=== PATIENT | female | born 1990 | race Caucasian/White ===

== ENCOUNTER 2019-10-03 16:45 | Emergency (ER) | payer OTHER ==
[~2019-10-03] VITALS: Ht 149.9 cm; Wt 76.0 kg
[~2019-10-03 16:45] MED LIST: HYDR-3240 PO; IBUP-1222 PO; IBUP-1223 PO
[2019-10-03 17:37] LABS: CULTURE INDICATED? YES; MICROSCOPIC INDICATED
--- NOTE | 2019-10-03 17:48 | NUR ---
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
--- NOTE | 2019-10-03 17:49 | NUR ---
THIS IS A 29 YO F W C/O OF ABD PAIN 10/10 AND RECENT DIARRHEA X4 DAYS. PAIN IS WORSE WITH EATING. DENIES NAUSEA AND VOMITING. DENIES RECENT ILLNESSES. PATIENTS RESPIRATIONS ARE EVEN AND UNLABORED. PATIENT IS IN NO ACUTE DISTRESS.
[2019-10-03] MEDS ORDERED: SERT25TA3 PO (17:55)
[2019-10-03] MEDS ORDERED: MORPHINE SULFATE 4 MG/ML, 1ML ONE (18:07)
[2019-10-03] MEDS ORDERED: ONDANSETRON 2MG/ML, 2ML ONE (18:07)
[2019-10-03] MEDS ORDERED: MORPHINE SULFATE 4 MG/ML, 1ML IVPush PRN (18:30)
[2019-10-03] MEDS ORDERED: ONDANSETRON 2MG/ML, 2ML IVPush ONE (18:30)
[2019-10-03 18:35] LABS: BASOPHILS # (AUTO) 0.04 x10^3/uL (0-0.1); BASOPHILS % (AUTO) 1 % (0-1); EOSINOPHILS # (AUTO) 0.25 x10^3/uL (0-0.4); EOSINOPHILS % (AUTO) 3 % (1-7); LYMPHOCYTES # (AUTO) 2.06 x10^3/uL (1-3.4); LYMPHOCYTES % (AUTO) 25 % (22-44); MD NO; MEAN CORPUSCULAR HGB CONC 33.1 g/dL (32.4-35.8); MEAN CORPUSCULAR VOLUME 87.8 fL (80-100); MONOCYTES # (AUTO) 0.42 x10^3/uL (0.2-0.8); MONOCYTES % (AUTO) 5 % (2-9); NEUTROPHILS # (AUTO) 5.47 x10^3/uL (1.8-6.8); NEUTROPHILS % (AUTO) 67 % (42-75); PLATELET COUNT 256 x10^3/uL (130-400); RED BLOOD COUNT 4.79 x10^6/uL (3.82-5.3); RED CELL DISTRIBUTION WIDTH 13.9 % (9.6-15.2)
[2019-10-03 18:42] LABS: ANION GAP 6 mmol/L (5-15); CALCIUM 9.1 mg/dL (8.5-10.1); CHLORIDE 106 mmol/L (98-107); CREATININE 0.95 mg/dL (0.55-1.02)
[2019-10-03 18:43] LABS: ALANINE AMINOTRANSFERASE 49 U/L (12-78); ALBUMIN 3.9 g/dL (3.4-5.0)
[2019-10-03 18:47] LABS: ALKALINE PHOSPHATASE 103 U/L (45-117); BILIRUBIN,TOTAL 0.5 mg/dL (0.2-1.0)
--- NOTE | 2019-10-03 19:00 | NUR ---
report received from teja/cody marsh.
--- NOTE | 2019-10-03 19:02 | NUR ---
pt in ct now.
--- NOTE | 2019-10-03 19:14 | NUR ---
PT BACK TO ROOM FROM CT AT THIS TIME.
[2019-10-03 19:33] VITALS: BP 101/61
[2019-10-04] MEDS ORDERED: OMNIPAQUE 350 MG/ML, 100ML BOTTLE ONE (00:02)
== END 2019-10-03 20:34 | disposition home or self-care (01) ==
LOC: ED 18:19
DX: R10.33 Periumbilical pain (principal); K66.8 Other specified disorders of peritoneum
CPT/HCPCS: 36415; 74177; 80053; 81001; 83690; 84703; 85025; 87086; 96374; 96375; 99284; J2270; J2405; Q9967

== ENCOUNTER 2019-11-01 07:15 | Emergency (ER) | payer OTHER ==
[~2019-11-01] VITALS: Ht 149.9 cm; Wt 76.5 kg
[~2019-11-01 07:15] MED LIST changes: +SERT25TA3 PO
[2019-11-01 07:24] VITALS: BP 112/67
[2019-11-01] MEDS ORDERED: DEXAMETHASONE 4 MG TABLET ONE (07:52)
[2019-11-01] MEDS ORDERED: DEXAMETHASONE 4 MG TABLET PO ONE (08:00)
--- NOTE | 2019-11-01 08:00 | NUR ---
PT TO IMAGING
[2019-11-01 08:40] LABS: RAPID INFLUENZA A Negative (Negative); RAPID INFLUENZA B Negative (Negative)
--- NOTE | 2019-11-01 09:32 | NUR ---
DISCHARGE INSTRUCTIONS REVIEWED
== END 2019-11-01 09:34 | disposition home or self-care (01) ==
LOC: ED 08:41
DX: B34.9 Viral infection, unspecified (principal)
CPT/HCPCS: 71046; 87081; 87400; 87880; 99284

== ENCOUNTER 2020-08-29 14:16 | Emergency (ER) | payer OTHER ==
[~2020-08-29] VITALS: Ht 149.9 cm; Wt 75.8 kg
[2020-08-29] MEDS ORDERED: ALBUTEROL/IPRATROPIUM 2.5MG/0.5MG, 3 ML NPPB SCH (15:30)
--- NOTE | 2020-08-29 16:30 | NUR ---
BREATHING TREATMENT ADMINISTERED
[2020-08-29 16:39] VITALS: BP 126/87
--- NOTE | 2020-08-29 17:27 | NUR ---
DISCHARGE INSTRUCTIONS REVIEWED
== END 2020-08-29 17:37 | disposition home or self-care (01) ==
LOC: ED 15:53
DX: U07.1 COVID-19 (principal); J15.9 Unspecified bacterial pneumonia; J45.901 Unspecified asthma with (acute) exacerbation
CPT/HCPCS: 71045; 87635; 94640; 99284

== ENCOUNTER 2020-12-19 08:01 | Emergency (ER) | payer BC, OTHER ==
[~2020-12-19] VITALS: Ht 149.9 cm; Wt 65.0 kg
[~2020-12-19 08:01] MED LIST changes: +HYDR-1067 PO; -HYDR-3240 PO; +SERT-331 PO; -SERT25TA3 PO
--- NOTE | 2020-12-19 08:51 | NUR ---
THIS IS A 30 YO F W/ C/O COUGH AND NASAL CONGESTION. PT AWAKE AND ALERT, CONVERSING W/O DIFFICULTY. RESP EVEN AND UNLABORED, NADN.
[2020-12-19 09:33] LABS: RAPID INFLUENZA A Negative (Negative); RAPID INFLUENZA B Negative (Negative)
[2020-12-19 09:56] VITALS: BP 114/69
--- NOTE | 2020-12-19 09:57 | NUR ---
patient back from x-ray resting on [facility] with children. TANMAY. awaiting results.
--- NOTE | 2020-12-19 10:35 | NUR ---
Patient given discharge instructions and they have confirmed that they understand the instructions. Patient ambulatory with steady gait.
== END 2020-12-19 10:36 | disposition home or self-care (01) ==
LOC: ED 08:48
DX: R50.9 Fever, unspecified (principal); Z20.822 Contact with and (suspected) exposure to COVID-19; J45.909 Unspecified asthma, uncomplicated
CPT/HCPCS: 71046; 87400; 99284; U0003